=== PATIENT | male | born 1945 | race Caucasian/White ===

== ENCOUNTER → 2017-09-21 09:17 | Outpatient (CLI) | payer MEDICARE, OTHER, SELFPAY ==
[2017-09-21 10:04] LABS: Hematocrit 37.4 % (40-54); Hemoglobin 12.2 g/dl (13.0-16.5); Mean Corp Hgb Conc 32.6 g/gl (32-36); Mean Corpuscular Hgb 31.4 pg (27.0-32.0); Mean Corpuscular Volume 96.4 fL (80-94); Platelet Count 264 K/mm3 (150-450); RBC Distribution Width CV 14.1 % (11.6-14.6); RBC Distribution Width SD 47.5 fl (35.1-43.9); Red Blood Count 3.88 M/mm3 (4.6-6.2); White Blood Count 9.1 K/mm3 (4.4-11.0)
[2017-09-21 10:06] LABS: Scan Indicated on CBC? Y/N NO
[2017-09-21 10:40] LABS: Albumin, Serum 3.4 g/dL (3.2-5.0); BUN 34 mg/dL (7-18); Calcium,Total 8.6 mg/dL (8.5-10.1); Chloride 109 mmol/L (98-107); Creatinine, Serum 2.13 mg/dL (0.70-1.30); EST Glomerular Filtration Rate 33 mL/min (>60); Est Glom Filt Rate - Afr Amer 39 mL/min (>60); Glucose 144 mg/dL (70-110); Phosphorus 3.8 mg/dL (2.5-4.9); Potassium 4.6 mmol/L (3.5-5.1); Sodium Level 142 mmol/L (136-145)
== END ==
PROVIDERS: Family Provider Family Medicine Geriatric Medicine; PCP Family Medicine Geriatric Medicine; Visit Provider Internal Medicine Nephrology
DX: E11.22 Type 2 diabetes mellitus with diabetic chronic kidney disease (principal); N18.3 Chronic kidney disease, stage 3 (moderate); E55.9 Vitamin D deficiency, unspecified
CPT/HCPCS: 36415; 80069; 82306; 82570; 85027

== ENCOUNTER → 2017-10-22 09:43 | Outpatient (CLI) | payer MEDICARE, OTHER, SELFPAY ==
--- NOTE | 2017-10-22 09:51 | CDU_ITS ---
Reason For Study: CAROTID STENOSIS Rt. Velocities/BP Lt. Velocities/BP Prox CCA 104.0/17.6 cm/sec. Prox CCA 86.8/15.8 cm/sec. Mid CCA 87.9/14.7 cm/sec. Mid CCA 92.0/19.3 cm/sec. Dist CCA 62.1/12.3 cm/sec. Dist CCA 89.1/18.2 cm/sec. Prox ICA 74.5/16.4 cm/sec. Prox ICA 90.3/14.1 cm/sec. Mid ICA 93.2/23.5 cm/sec. Mid ICA 80.9/22.3 cm/sec. Dist ICA 97.3/22.3 cm/sec. Dist ICA 94.4/25.2 cm/sec. Rt. ICA/CCA = 97.3/87.9=1.1. Lt. ICA/CCA = 94.4/92.0=1.0. Prox ECA 106.0/2.93 cm/sec. Prox ECA 116.0/9.38 cm/sec. Rt. Vert. 62.9/13.0 cm/sec. Lt. Vert. 36.4/7.38 cm/sec. Right Extracranial There is intimal thickening but no significant atherosclerotic plaque noted in the right common carotid artery. There is homogeneous, smooth atherosclerotic plaque noted in the right internal carotid artery. The right internal carotid artery is not well visualized. There is no significant atherosclerotic plaque noted in the right external carotid artery. Antegrade flow is noted in the right vertebral artery. Left Extracranial There is intimal thickening but no significant atherosclerotic plaque noted in the left common carotid artery. There is heterogeneous, smooth atherosclerotic plaque noted in the left internal carotid artery. There is no significant atherosclerotic plaque noted in the left external carotid artery. Antegrade flow is noted in the left vertebral artery. There is homogeneous, irregular atherosclerotic plaque noted in the left bulb. Procedure Carotid Duplex 48312. The exam was diagnostic. Exam performed in department. Interpretation Summary Mild (<50%) stenosis right extracranial internal carotid. Mild (<50%) stenosis left extracranial internal carotid. Flow within the vertebral arteries is antegrade bilaterally. Ordering Physician: Jayden Cedillo Referring Physician: Jayden Cedillo Chi Performed By: Sultana Patel, CHENTE, RVT
== END ==
PROVIDERS: Family Provider Family Medicine Geriatric Medicine; PCP Family Medicine Geriatric Medicine; Visit Provider Family Medicine Geriatric Medicine
DX: I65.29 Occlusion and stenosis of unspecified carotid artery (principal); Z86.73 Personal history of transient ischemic attack (TIA), and cerebral infarction without residual deficits
CPT/HCPCS: 93880

== ENCOUNTER → 2017-11-23 12:06 | Outpatient (CLI) | payer MEDICARE, OTHER, SELFPAY | PROVIDERS: Family Provider Family Medicine Geriatric Medicine; PCP Family Medicine Geriatric Medicine; Visit Provider Family Medicine Geriatric Medicine | DX: J32.9 Chronic sinusitis, unspecified (principal) | CPT/HCPCS: 87633 ==

== ENCOUNTER 2017-12-18 20:19 | Observation (INO) | payer MEDICARE, OTHER, SELFPAY ==
[2017-12-18] VITALS (7 sets, daily range): BP systolic 130–159; BP diastolic 58–90; PULSE 66–86; RESP 14–19; TEMP 36.4–36.5; O2SAT 97–99; BMI 30.7; BMI 30.2; BMI 30.3
--- NOTE | 2017-12-18 20:22 | NURSING ---
RN CALLED FOR EKG, PULLED OLD EKG'S FOR
--- NOTE | 2017-12-18 20:37 | EKG12_ITS ---
Test Reason : CP Blood Pressure : / mmHG Vent. Rate : 073 BPM Atrial Rate : 073 BPM P-R Int : 186 ms QRS Dur : 098 ms QT Int : 386 ms P-R-T Axes : 081 076 063 degrees QTc Int : 425 ms Normal sinus rhythm with sinus arrhythmia Normal ECG Confirmed by MARY SINGLETARY, WARREN ([id number]), associate entertainment editor SRAVAN ANAYA ([id number]) on 12/21/2017 3:30:57 PM Referred By: VINCENT Confirmed By:WARREN HERNANDEZ MD
[2017-12-18] MEDS: Aspirin 81 MG TAB.CHEW 324 MG PO (20:40)
--- NOTE | 2017-12-18 20:40 | RAD_ITS ---
STUDY: X-RAY CHEST REASON FOR EXAM: Male, 72 years old. Chest pain TECHNIQUE: Frontal view of the chest COMPARISON: None. FINDINGS: The lungs are clear. There are no pleural effusions. There is no pneumothorax. The heart is normal in size. The visualized osseous structures are within normal limits. RAD/Chest 1 View (Portable) IMPRESSION: No acute thoracic pathology. Electronically Signed: Ralf Thompson, at 21:06 EDT Tel , Service support ,
[2017-12-18 20:47] LABS: Absolute Lymphocyte Count 0.82 X10^3/ul (0.83-4.51); Absolute Neutrophil Count 8.1 X10^3/uL (2.0-7.7); Basophil# 0.01 X10^3/uL; Basophil% 0.1 % (0-1); Hematocrit 37.8 % (40-54); Hemoglobin 12.3 g/dl (13.0-16.5); Lymphocyte # 0.82 X10^3/ul (4.0); Lymphocyte % 8.9 % (19-41); Mean Corp Hgb Conc 32.5 g/gl (32-36); Mean Corpuscular Hgb 30.8 pg (27.0-32.0); Mean Corpuscular Volume 94.5 fL (80-94); Mean Platelet Vol. 8.9 fl (6.2-12.0); Monocyte# 0.31 X10^3/uL; Monocyte% 3.4 % (0-10); Neutrophil # 8.06 X10^3/uL (2.7-7.7); Neutrophil % 87.1 % (47-70); POSITIVE COUNT NO; POSITIVE DIFFERENTIAL NO; POSITIVE MORPHOLOGY NO; Platelet Count 210 K/mm3 (150-450); RBC Distribution Width CV 14.3 % (11.6-14.6); RBC Distribution Width SD 49.2 fl (35.1-43.9); White Blood Count 9.3 K/mm3 (4.4-11.0)
--- NOTE | 2017-12-18 21:02 | ED.VISSUMM ---
- ER Visit Summary Date of Service: 12/18/17 Chief Complaint: Chest pain History of Present Illness: The patient is a 72 M presenting with chest pain. He states this started just prior to arrival. He was sitting in a chair and developed midsternal chest discomfort. He denies radiation. He had mild shortness of breath associated with this. Denies nausea or diaphoresis. He states the pain was consistent until he arrived at the hospital. He states that the pain has now resolved. He has a history of diabetes, hypertension, hypercholesterolemia. He is not a smoker. Physical Examination: Vitals are stable. Patient is afebrile. Alert no acute distress. HEENT exam is unremarkable. Neck is supple. Lungs are clear and equal bilaterally. Heart is regular rate and rhythm. Abdomen is soft nontender nondistended. Extremities are unremarkable. Skin is warm and dry. No focal neurologic deficit. Remainder of exam is unremarkable. Emergency Department Course and Treatment: Patient was given aspirin on arrival. EKG is sinus rate is [address] depression. Chest x-ray shows no acute process. CBC normal except for hemoglobin 12.3. Chemistry normal except for potassium 5.3, glucose 318, BUN 49, creatinine 2.44. Troponin is negative. Patient is chest pain-free on reevaluation. Will discuss with the hospitalist for observation. Disposition: Observation Impression: Chest pain This note was generated with [employer] dictation software. It may contain incorrect words, spelling, and punctuation that were not noted in review of the chart prior to signing ED Disposition - Plan for ED Patient: Chief Complaint: Chest Pain Referrals: Jayden Cedillo Chi, MD [Primary Care Provider] -
[2017-12-18 21:05] LABS: Anion Gap 9 (5-15); BUN 49 mg/dL (7-18); BUN/Creat Ratio 20.1 RATIO (10-20); Calcium,Total 8.7 mg/dL (8.5-10.1); Chloride 107 mmol/L (98-107); Creatinine, Serum 2.44 mg/dL (0.70-1.30); EST Glomerular Filtration Rate 28 mL/min (>60); Est Glom Filt Rate - Afr Amer 34 mL/min (>60); Estimated Creatinine Clearance 28.26 ml/min; Glucose 318 mg/dL (74-106); Potassium 5.3 mmol/L (3.5-5.1); Sodium Level 136 mmol/L (136-145)
--- NOTE | 2017-12-18 22:41 | ED.RN ---
reported to RN that pt passed out in [facility] on sunday. information relayed to . pt reports + LOC
--- NOTE | 2017-12-18 22:42 | ED.RN ---
pt has had CP on/off in ED. standing relieves pain.
--- NOTE | 2017-12-18 22:51 | PCM.HP.STD ---
Problem List (1) Carotid artery disease Status: Chronic (2) Stage III chronic kidney disease Status: Chronic (3) Hypothyroidism Status: Chronic (4) Hyperlipidemia Status: Chronic (5) HTN (hypertension) Status: Chronic (6) CKD (chronic kidney disease) Status: Chronic (7) DM2 (diabetes mellitus, type 2) Status: Chronic History of Present Illness Date of Admission: 12/18/17 Chief Complaint: Chest pain. The patient is a 72 year old M with past medical history as mentioned above presented to the emergency room because of chest pain. His symptoms started this evening when he was sitting in his chair and after he ate his dinner and ice cream, developed midsternal chest pain, described as chest tightness, 4-5 out of 10 in severity, not radiating, relieved by standing, no aggravating factors and denied any significant associated symptoms. He denied associated shortness of breath, dizziness, lightheadedness, nausea or vomiting.. Earlier today, his was mowing the lawn and he helped her to empty the grass bags. In the emergency department, his vital signs were stable. His routine blood work was remarkable for chronic anemia with hemoglobin of 12.3 g/dL, potassium of 5.3 and creatinine of 2.44. His troponin is negative. EKG revealed normal sinus rhythm without evidence of acute ischemic changes. Chest x-ray showed no acute findings. He is being admitted for chest pain for evaluation. Past Medical History Past Medical History (Chronic Problems): Chronic Problems Carotid artery disease (Chronic) Stage III chronic kidney disease (Chronic) Hypothyroidism (Chronic) Hyperlipidemia (Chronic) HTN (hypertension) (Chronic) CKD (chronic kidney disease) (Chronic) DM2 (diabetes mellitus, type 2) (Chronic) Allergies lisinopril Allergy (Verified 12/18/17 20:25) Other Home Medications: Ambulatory Orders Medication Instructions Recorded Amlodipine [Norvasc] 5 mg PO DAILY 04/06/14 Aspirin E.C. [Ecotrin] 81 mg PO BID 04/06/14 Atorvastatin Calcium [Lipitor] 40 mg PO QHS 04/06/14 Pioglitazone [Actos] 45 mg PO DAILY 04/06/14 Propranolol HCl [Inderal LA (Beta 80 mg PO BID 04/06/14 Kaykay)] Sitagliptin Phosphate [Januvia] 50 mg PO DAILY 04/06/14 Cefdinir 300 mg PO BID 12/18/17 Cholecalciferol (Vitamin D3) 2,000 unit PO DAILY 12/18/17 [Vitamin D3] Levothyroxine [Synthroid] 25 mcg PO DAILY 12/18/17 Prednisone 12/18/17 Valsartan 80 mg PO DAILY 12/18/17 Surgical History: - - Left carotid endarterectomy Psychiatric History: No pertinent psych hx Lives: Spouse/ Significant Other Smoking Status: Never smoker Alcohol: None Drugs: None - *Family History Maternal History Items: No pertinent history Paternal History Items: No pertinent history Review of Systems Constitutional: Denies: Anorexia, Chills, Fever, Weakness Eyes: Denies: Blurred vision, Double vision, Drainage, Redness HEENT: Denies: Difficulty Hearing, Ear Pain, Eye Pain, Nasal Congestion, Sore Throat Cardiovascular: Reports: Chest Pain, Chest Tightness. Denies: Edema, Heaviness, Light Headedness, Palpitations, Paroxysmal Noc. Dyspnea, Syncope Respiratory: Denies: Cough, Pleuritic Pain, Shortness of Breath, Sputum production, Wheezing Gastrointestinal: Denies: Abdominal Pain, Constipation, Diarrhea, Nausea, Vomiting Genitourinary: Denies: Dysuria, Frequency, Hematuria Musculoskeletal: Reports: Back Pain. Denies: Arm Pain, Foot Pain Skin: Denies: Dryness, Rash Neurological: Denies: Balance problems, Double vision, Slurred speech, Confusion, Focal weakness, Headaches, Incoordination Psychiatric: Denies: Anxiety, Depression Endocrine: Denies: Change in Body Habitus, Polydipsia VTE Information - Inpt Only VTE Present on Admission: No VTE Mechan Device Prophylaxis: None VTE Pharm Prophylaxis ordered?: Yes - Physical Exam General: Alert, Oriented x3, Cooperative, No apparent distress HEENT: Atraumatic, PERRLA, EOMI Oral: Moist Mucosa, No Gingival or Mucosal Lesions/ Ulcerations Neck: Supple, No JVD, Negative Carotid Bruits, Trachea Midline, Thyroid Normal Size and Texture Lungs: Clear to auscultation, No rhonchi, No wheeze, No rales, Diminished Cardiovascular: Regular rate, Regular Rhythm, Normal S1, Normal S2, PMI Normal Abdomen: Bowel Sounds Present, Soft, Non Tender, Non-Distended, No Hepato-splenomegaly Extremities: No clubbing, No cyanosis, No edema Skin: No rashes, No breakdown Lymphatic: No Cervical, Supraclavicular, or Inguinal Adenopathy Neurological: Cranial nerves II-XII grossly intact, Motor Exam 5/5 strength throughout Psych/Mental Status: Normal Affect, Appropriate, Alert and oriented to time, place, person, mood and affect Vital Signs Temp Pulse Resp BP Pulse Ox 97.7 F L 73 18 130/70 H 99 12/18/17 20:20 12/18/17 21:26 12/18/17 21:26 12/18/17 21:26 12/18/17 21:26 Laboratory Tests 12/18/17 12/18/17 Range/Units 20:29 20:29 WBC 9.3 (4.4-11.0) K/mm3 RBC 4.00 L (4.6-6.2) M/mm3 Hgb 12.3 L (13.0-16.5) g/dl Hct 37.8 L (40-54) % MCV 94.5 H (80-94) fL MCH 30.8 (27.0-32.0) pg MCHC 32.5 (32-36) g/gl RDW 14.3 (11.6-14.6) % RDW Differential 49.2 H (35.1-43.9) fl Plt Count 210 (150-450) K/mm3 MPV 8.9 (6.2-12.0) fl Immature Gran % (Auto) 0.500 (0.0-0.9) % Neut % (Auto) 87.1 H (47-70) % Lymph % (Auto) 8.9 L (19-41) % [place] % (Auto) 3.4 (0-10) % Eos % (Auto) 0.0 (0-5) % Baso % (Auto) 0.1 (0-1) % Absolute Neuts (auto) 8.1 H (2.0-7.7) X10^3/uL Absolute Lymphs (auto) 0.82 L (0.83-4.51) X10^3/ul Total Counted Not Reportable Sodium 136 (136-145) mmol/L Potassium 5.3 H (3.5-5.1) mmol/L Chloride 107 (98-107) mmol/L Carbon Dioxide 20.0 L (21.0-32.0) mmol/L Anion Gap 9 (5-15) BUN 49 H (7-18) mg/dL Creatinine 2.44 H (0.70-1.30) mg/dL Estim Creat Clear Calc 28.26 ml/min Est GFR (MDRD) Af Amer 34 L (>60) mL/min Est GFR (MDRD) Non-Af 28 L (>60) mL/min BUN/Creatinine Ratio 20.1 H (10-20) RATIO Glucose 318 H (74-106) mg/dL Calcium 8.7 (8.5-10.1) mg/dL Troponin I < 0.02 (<0.06) ng/mL Clinical Impression(s) from Imaging Studies Chest X-Ray 12/18/17 20:40 IMPRESSION: No acute thoracic pathology. Electronically Signed: Ralf Thompson, at 21:06 EDT Tel , Service support , Assessment/Plan This is a 72 years old male patient presented to the medicine because of chest pain and he is being admitted for evaluation. #1 chest pain: Risk factors are age, hypertension, lipidemia, type 2 diabetes and history of carotid stenosis status post left carotid endarterectomy. Initial EKG without acute ischemic changes. Troponin is negative. Chest x-ray showed no acute findings. Plan: Admit to PCU for observation, cardiac monitoring, serial cardiac enzymes, repeat EKG tomorrow morning, nuclear stress test tomorrow morning if cardiac enzymes are negative. #2 mild hyperkalemia: Potassium is 5.3, no EKG changes. Plan for IV fluids, repeat BMP tomorrow morning. #3 hypertension: Blood pressure stable, continue Norvasc, hold propranolol for stress test. #4 hyperlipidemia: Continue statins. #5 type 2 diabetes mellitus: ADA diet, Accu-Cheks, insulin sliding scale, continue Actos and Januvia. #6 stage III chronic kidney disease: Baseline creatinine has been around 2.1-2.3 mg/dL. Admission creatinine is 2.44, needs to baseline, plan for gentle IV fluids for hydration, repeat BMP tomorrow morning. #7 hypothyroidism: Continue levothyroxine. #8 DVT prophylaxis: Subcu heparin. This note was generated with [employer] software. It may contain incorrect words, spelling, and punctuation that were not noted in checking the note before signing. Code Visit OBSV E&M: 90801 Initial observation care L2
--- NOTE | 2017-12-18 22:54 | HP.PCM_ITS ---
Problem List (1) Carotid artery disease Status: Chronic (2) Stage III chronic kidney disease Status: Chronic (3) Hypothyroidism Status: Chronic (4) Hyperlipidemia Status: Chronic (5) HTN (hypertension) Status: Chronic (6) CKD (chronic kidney disease) Status: Chronic (7) DM2 (diabetes mellitus, type 2) Status: Chronic History of Present Illness Date of Admission: 12/18/17 Chief Complaint: Chest pain. The patient is a 72 year old M with past medical history as mentioned above presented to the emergency room because of chest pain. His symptoms started this evening when he was sitting in his chair and after he ate his dinner and ice cream, developed midsternal chest pain, described as chest tightness, 4-5 out of 10 in severity, not radiating, relieved by standing, no aggravating factors and denied any significant associated symptoms. He denied associated shortness of breath, dizziness, lightheadedness, nausea or vomiting.. Earlier today, his was mowing the lawn and he helped her to empty the grass bags. In the emergency department, his vital signs were stable. His routine blood work was remarkable for chronic anemia with hemoglobin of 12.3 g/dL, potassium of 5.3 and creatinine of 2.44. His troponin is negative. EKG revealed normal sinus rhythm without evidence of acute ischemic changes. Chest x-ray showed no acute findings. He is being admitted for chest pain for evaluation. Past Medical History Past Medical History (Chronic Problems): Chronic Problems Carotid artery disease (Chronic) Stage III chronic kidney disease (Chronic) Hypothyroidism (Chronic) Hyperlipidemia (Chronic) HTN (hypertension) (Chronic) CKD (chronic kidney disease) (Chronic) DM2 (diabetes mellitus, type 2) (Chronic) Allergies lisinopril Allergy (Verified 12/18/17 20:25) Other Home Medications: Ambulatory Orders Medication Instructions Recorded Amlodipine [Norvasc] 5 mg PO DAILY 04/06/14 Aspirin E.C. [Ecotrin] 81 mg PO BID 04/06/14 Atorvastatin Calcium [Lipitor] 40 mg PO QHS 04/06/14 Pioglitazone [Actos] 45 mg PO DAILY 04/06/14 Propranolol HCl [Inderal LA (Beta 80 mg PO BID 04/06/14 Kaykay)] Sitagliptin Phosphate [Januvia] 50 mg PO DAILY 04/06/14 Cefdinir 300 mg PO BID 12/18/17 Cholecalciferol (Vitamin D3) 2,000 unit PO DAILY 12/18/17 [Vitamin D3] Levothyroxine [Synthroid] 25 mcg PO DAILY 12/18/17 Prednisone 12/18/17 Valsartan 80 mg PO DAILY 12/18/17 Surgical History: - - Left carotid endarterectomy Psychiatric History: No pertinent psych hx Lives: Spouse/ Significant Other Smoking Status: Never smoker Alcohol: None Drugs: None - *Family History Maternal History Items: No pertinent history Paternal History Items: No pertinent history Review of Systems Constitutional: Denies: Anorexia, Chills, Fever, Weakness Eyes: Denies: Blurred vision, Double vision, Drainage, Redness HEENT: Denies: Difficulty Hearing, Ear Pain, Eye Pain, Nasal Congestion, Sore Throat Cardiovascular: Reports: Chest Pain, Chest Tightness. Denies: Edema, Heaviness , Light Headedness, Palpitations, Paroxysmal Noc. Dyspnea, Syncope Respiratory: Denies: Cough, Pleuritic Pain, Shortness of Breath, Sputum production, Wheezing Gastrointestinal: Denies: Abdominal Pain, Constipation, Diarrhea, Nausea, Vomiting Genitourinary: Denies: Dysuria, Frequency, Hematuria Musculoskeletal: Reports: Back Pain. Denies: Arm Pain, Foot Pain Skin: Denies: Dryness, Rash Neurological: Denies: Balance problems, Double vision, Slurred speech, Confusion , Focal weakness, Headaches, Incoordination Psychiatric: Denies: Anxiety, Depression Endocrine: Denies: Change in Body Habitus, Polydipsia VTE Information - Inpt Only VTE Present on Admission: No VTE Mechan Device Prophylaxis: None VTE Pharm Prophylaxis ordered?: Yes - Physical Exam General: Alert, Oriented x3, Cooperative, No apparent distress HEENT: Atraumatic, PERRLA, EOMI Oral: Moist Mucosa, No Gingival or Mucosal Lesions/ Ulcerations Neck: Supple, No JVD, Negative Carotid Bruits, Trachea Midline, Thyroid Normal Size and Texture Lungs: Clear to auscultation, No rhonchi, No wheeze, No rales, Diminished Cardiovascular: Regular rate, Regular Rhythm, Normal S1, Normal S2, PMI Normal Abdomen: Bowel Sounds Present, Soft, Non Tender, Non-Distended, No Hepato- splenomegaly Extremities: No clubbing, No cyanosis, No edema Skin: No rashes, No breakdown Lymphatic: No Cervical, Supraclavicular, or Inguinal Adenopathy Neurological: Cranial nerves II-XII grossly intact, Motor Exam 5/5 strength throughout Psych/Mental Status: Normal Affect, Appropriate, Alert and oriented to time, place, person, mood and affect Vital Signs Temp Pulse Resp BP Pulse Ox 97.7 F L 73 18 130/70 H 99 12/18/17 20:20 12/18/17 21:26 12/18/17 21:26 12/18/17 21:26 12/18/17 21:26 Laboratory Tests 3 12/18/17 12/18/17 Range/Units 20:29 20:29 WBC 9.3 (4.4-11.0) K/mm3 RBC 4.00 L (4.6-6.2) M/mm3 Hgb 12.3 L (13.0-16.5) g/dl Hct 37.8 L (40-54) % MCV 94.5 H (80-94) fL MCH 30.8 (27.0-32.0) pg MCHC 32.5 (32-36) g/gl RDW 14.3 (11.6-14.6) % RDW Differential 49.2 H (35.1-43.9) fl Plt Count 210 (150-450) K/mm3 MPV 8.9 (6.2-12.0) fl Immature Gran % (Auto) 0.500 (0.0-0.9) % Neut % (Auto) 87.1 H (47-70) % Lymph % (Auto) 8.9 L (19-41) % Jay % (Auto) 3.4 (0-10) % Eos % (Auto) 0.0 (0-5) % Baso % (Auto) 0.1 (0-1) % Absolute Neuts (auto) 8.1 H (2.0-7.7) X10^3/uL Absolute Lymphs (auto) 0.82 L (0.83-4.51) X10^3/ul Total Counted Not Reportable Sodium 136 (136-145) mmol/L Potassium 5.3 H (3.5-5.1) mmol/L Chloride 107 (98-107) mmol/L Carbon Dioxide 20.0 L (21.0-32.0) mmol/L Anion Gap 9 (5-15) BUN 49 H (7-18) mg/dL Creatinine 2.44 H (0.70-1.30) mg/dL Estim Creat Clear Calc 28.26 ml/min Est GFR (MDRD) Af Amer 34 L (>60) mL/min Est GFR (MDRD) Non-Af 28 L (>60) mL/min BUN/Creatinine Ratio 20.1 H (10-20) RATIO Glucose 318 H (74-106) mg/dL Calcium 8.7 (8.5-10.1) mg/dL Troponin I < 0.02 (<0.06) ng/mL Clinical Impression(s) from Imaging Studies Chest X-Ray 12/18/17 20:40 IMPRESSION: No acute thoracic pathology. Electronically Signed: Ralf Thompson, at 21:06 EDT Tel , Service support , Assessment/Plan This is a 72 years old male patient presented to the medicine because of chest pain and he is being admitted for evaluation. #1 chest pain: Risk factors are age, hypertension, lipidemia, type 2 diabetes and history of carotid stenosis status post left carotid endarterectomy. Initial EKG without acute ischemic changes. Troponin is negative. Chest x-ray showed no acute findings. Plan: Admit to PCU for observation, cardiac monitoring, serial cardiac enzymes, repeat EKG tomorrow morning, nuclear stress test tomorrow morning if cardiac enzymes are negative. #2 mild hyperkalemia: Potassium is 5.3, no EKG changes. Plan for IV fluids, repeat BMP tomorrow morning. #3 hypertension: Blood pressure stable, continue Norvasc, hold propranolol for stress test. #4 hyperlipidemia: Continue statins. #5 type 2 diabetes mellitus: ADA diet, Accu-Cheks, insulin sliding scale, continue Actos and Januvia. #6 stage III chronic kidney disease: Baseline creatinine has been around 2.1- 2.3 mg/dL. Admission creatinine is 2.44, needs to baseline, plan for gentle IV fluids for hydration, repeat BMP tomorrow morning. #7 hypothyroidism: Continue levothyroxine. #8 DVT prophylaxis: Subcu heparin. This note was generated with [employer] software. It may contain incorrect words, spelling, and punctuation that were not noted in checking the note before signing. Code Visit OBSV E&M: 61686 Initial observation care L2
--- NOTE | 2017-12-18 22:58 | EKG12_ITS ---
Test Reason : CP Blood Pressure : / mmHG Vent. Rate : 077 BPM Atrial Rate : 077 BPM P-R Int : 186 ms QRS Dur : 096 ms QT Int : 384 ms P-R-T Axes : 092 074 059 degrees QTc Int : 434 ms Normal sinus rhythm ST & T wave abnormality, consider lateral ischemia Abnormal ECG Confirmed by WARREN HERNANDEZ MD ([id number]), multimedia editor SRAVAN ANAYA ([id number]) on 12/21/2017 3:31:17 PM Referred By: ISIS
[2017-12-19] VITALS (8 sets, daily range): BP systolic 126–150; BP diastolic 60–68; PULSE 63–70; RESP 14–18; TEMP 36.7–36.9; O2SAT 93–98
[2017-12-19] MEDS: 0.9% Normal Saline 1,000 ML 75 ML IV (00:22)
[2017-12-19 04:20] LABS: Hematocrit 33.7 % (40-54); Hemoglobin 11.1 g/dl (13.0-16.5); Mean Corp Hgb Conc 32.9 g/gl (32-36); Mean Corpuscular Volume 94.1 fL (80-94); Mean Platelet Vol. 8.7 fl (6.2-12.0); Platelet Count 194 K/mm3 (150-450); Red Blood Count 3.58 M/mm3 (4.6-6.2); White Blood Count 10.8 K/mm3 (4.4-11.0)
[2017-12-19 04:41] LABS: Prothrombin Time (Protime)PT. 13.6 SECONDS (11.7-14.9)
[2017-12-19 04:42] LABS: Partial Thromboplast Time 25.5 Seconds (24.1-36.2); Scan Indicated on CBC? Y/N NO
[2017-12-19 04:45] LABS: Anion Gap 9 (5-15); BUN 49 mg/dL (7-18); BUN/Creat Ratio 21.9 RATIO (10-20); Calcium,Total 8.4 mg/dL (8.5-10.1); Chloride 112 mmol/L (98-107); Creatinine, Serum 2.24 mg/dL (0.70-1.30); EST Glomerular Filtration Rate 31 mL/min (>60); Est Glom Filt Rate - Afr Amer 37 mL/min (>60); Estimated Creatinine Clearance 30.78 ml/min; Glucose 213 mg/dL (74-106); Potassium 4.8 mmol/L (3.5-5.1); Sodium Level 141 mmol/L (136-145)
[2017-12-19] MEDS: Levothyroxine 25 MCG TABLET PO (05:09)
[2017-12-19] MEDS: Aspirin E.C. 81 MG Tablet PO (05:09)
--- NOTE | 2017-12-19 05:55 | EKG12_ITS ---
Test Reason : AM EKG Blood Pressure : / mmHG Vent. Rate : 066 BPM Atrial Rate : 066 BPM P-R Int : 178 ms QRS Dur : 094 ms QT Int : 408 ms P-R-T Axes : 081 067 058 degrees QTc Int : 427 ms Normal sinus rhythm Normal ECG When compared with ECG of 18-DEC-2017 22:18, MANUAL COMPARISON REQUIRED, DATA IS UNCONFIRMED Confirmed by MARY SINGLETARY, WARREN ([id number]), assignment editor SRAVAN ANAYA ([id number]) on 12/21/2017 3:58:44 PM Referred By: GARY Confirmed By:WARREN HERNANDEZ MD
--- NOTE | 2017-12-19 06:36 | NURSING ---
Spoke with , Kristie, over the phone. She is to bring in home medications or home medication list later this am.
[2017-12-19 07:36] LABS: Bedside Glucose 174 mg/dL (70-110)
--- NOTE | 2017-12-19 08:16 | ECHOD_ITS ---
Reason For Study: CHEST PAIN Procedure This was a 2D Doppler, Color Flow transthoracic echocardiogram. Exam performed portable in patient room. Left Ventricle Normal size and thickness. The estimated ejection fraction is 65 %. Stage 2 diastolic dysfunction. No regional wall motion abnormalities noted. Right Ventricle Normal size and thickness. Normal systolic function. Atria The left atrium is moderately enlarged. The right atrium is mildly enlarged. Normal atrial septum. Mitral Valve The mitral valve is structurally normal. No prolapse or stenosis seen. Mild (1+) mitral valve insufficiency. Tricuspid Valve Normal tricuspid valve. Trivial tricuspid valve insufficiency. Right ventricular systolic pressure estimated to be 35 mmHg. Aortic Valve Normal aortic valve. Trisinus/trileaflet aortic valve. Pulmonic Valve Normal pulmonic valve. Trivial pulmonic valve insufficiency. Great Vessels Normal aortic root. Normal arch. Normal inferior vena cava. Inferior vena cava collapse with sniff. Pericardium/Pleural No pericardial effusion. MMode/2D Measurements & Calculations LVIDd: 4.8 cm IVSd: 1.1 cm Ao root diam: 3.4 cm LVIDs: 3.2 cm LVPWd: 1.0 cm LA dimension: 3.9 cm RVDd: 3.6 cm FS: 33.8 % LAV(MOD-bp): 94.3 ml LA A4 area: 26.5 cm2 RA A4 area: 20.4 cm2 LAV(MOD-bp) Indexed: 44.2 ml/m2 LAV(MOD-sp2): 82.8 ml LAV(MOD-sp4): 90.1 ml Doppler Measurements & Calculations MV E max delvin: 115.5 cm/sec Lat Peak E' Delvin: 13.0 cm/sec Med Peak E' Delvin: 8.8 cm/sec MV A max delvin: 70.0 cm/sec E/E' lat: 8.9 E/E' med: 13.1 MV E/A: 1.6 Ao V2 max: 140.0 cm/sec LV V1 max: 94.5 cm/sec PA V2 max: 107.7 cm/sec Ao max P.8 mmHg LV V1 max P.6 mmHg PI end-d delvin: 106.6 cm/sec TR max delvin: 269.6 cm/sec PI dec slope: 280.2 cm/sec2 TR max P.6 mmHg Interpretation Summary The estimated ejection fraction is 65 %. Stage 2 diastolic dysfunction. The left atrium is moderately enlarged. Mild (1+) mitral valve insufficiency. Trivial tricuspid valve insufficiency. Right ventricular systolic pressure estimated to be 35 mmHg. Compared to echo report dated 04/07/2014, no appreciable changes noted. Ordering Physician: Macario Singh MD Referring Physician: Jayden Cedillo Chi Performed By: Sultana Patel RDCS, RVT
--- NOTE | 2017-12-19 09:00 | STRESSREP ---
Stress Test Report Resting pharmacologic myocardial perfusion stress test. 72-year-old male with a history of chest pain. Stress protocol. The patient was brought down for a stress test was noted to have active chest pain as well as abnormal troponins 14.1 mCi of technetium 99m sestamibi was injected at rest and resting images were obtained. Review of the images demonstrated normal uptake of tracer in all areas of the myocardium during the resting images. The test was terminated due to his active chest pain. Conclusion: Incomplete stress test with no evidence of resting perfusion defect noted.
[2017-12-19] MEDS: TICAGRELOR 90 MG TABLET 180 MG PO (10:42)
[2017-12-19 12:15] LABS: Bedside Glucose 148 mg/dL (70-110)
[2017-12-19] MEDS: DiphenhydrAMINE 25 MG Capsule 50 MG PO (12:42)
--- NOTE | 2017-12-19 12:47 | NURSING ---
report called to animal laboratory helper for heart cath.
--- NOTE | 2017-12-19 13:49 | NURSING ---
report called to [facility] on ICU for transfer.
--- NOTE | 2017-12-19 14:05 | CL.D_ITS ---
Patient Name: DARCIE PEARL Study Date: 12/19/2017 Performing: Macario Singh MD Ht: 70.07 inches 178 cm : 1945 Wt: 211.64 lbs 96 kg Age: 72 Gender: male BSA: 2.14 PROCEDURE(S) PERFORMED [id number] INSERTION CLINICAL PROFILE AND INDICATIONS Indications: ACS <= 24 hrs, New Onset Angina <= 2 months, Worsening Angina, Suspected CAD Heart Failure: None Stress/Imaging Stress/Image Study Performed: No Angina Classification Anginal Classification w/in 2 Weeks: CCS IV CAD Presentations: Non-STEMI. Symptom onset Date/Time: 11/18/2017 Time Not Available Comorbidities/Risk Factors: Hypertension Dyslipidemia Diabetes Mellitus: Diabetes Therapy: Oral CONCLUSIONS Triple vessel CAD of the LM, LAD, LCX and RCA Global LV systolic dysfunction- Mild RECOMMENDATIONS Risk factor modification ASA Indefinitely Surgery consult for coronary revascularization Emergent IABP placed after cath for severe multi-vessel and LM disease as well as dynamic diffuse ST depression. Tx to [facility] for CABG. IV heparin gtt IV NTG gtt Pt became chest pain free and ECG changes resolved after NTG gtt and IABP. DESCRIPTION OF PROCEDURE CORONARY ANGIOGRAPHY DOMINANCE: Co- Dominant LEFT HEART ASSESSMENT Left Ventricular Ejection Fraction: by LV Gram 55 % Global Hypokinesis - Mild Normal Left Ventricular systolic function LVEDP: 31 mmHg Elevated Left Ventricular End Diastolic Pressure LEFT MAIN: Mild calcification, 75 % Stenosis LEFT ANTERIOR DECENDING ARTERY: Moderate calcification OSTIAL LAD: 70 % Stenosis PROX LAD: 70 % Stenosis CIRCUMFLEX ARTERY: Moderate calcification OSTIAL CIRC: 85 % Stenosis OM 1: Proximal - 70 % Stenosis RIGHT CORONARY ARTERY: is occluded COLLATERAL FLOW: Collateral flow from Left to Right COMPLICATIONS No Complications PROCEDURE MEDICATIONS Fentanyl 25 mcg IV Oxygen: 2 L/min via nasal cannula Heparin 25,000u / 250ml D5W @ 800 u/hr IV started 12/19/2017 13:39:00 Nitro Tab 0.4 mg PO 12/19/2017 13:26:50 Nitro glycerin 25mg / 250ml D5W @ 5 mcg/min IV started 12/19/2017 13:42:21 SUMMARY OF HEMODYNAMIC DATA Time AIR REST ECG 13:02:09 AO 161/56 (91) SA 13:21:21 LV 194/-8, 18 13:28:11 LV 184/4, 31 13:28:19 LV 191/12, 37 13:28:37 AO 184/80 (124) 13:28:43 Signed By Macario Singh MD On 12/19/2017 14:04:36 Macario Singh MD
--- NOTE | 2017-12-19 14:13 | PCM.CONS.C ---
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 The patient was helping with loading grass into bags yesterday, and while he was at dinner developed substernal chest pain which was quite severe having him get up to walk away from the table. When he returned at the urging of his he went to [facility] ER where an EKG was performed which showed normal sinus rhythm, no acute changes. His initial troponins were negative ?2 however his third 1 was 0.37 increasing to 1.01. His chest pain did not return. Patient was loaded with baby aspirin and Brilinta, and referred for urgent catheterization. This demonstrated moderate calcification of his LAD and left circumflex, left main disease of about 70%, ostial LAD and proximal LAD stenosis of 70%, ostial left circumflex stenosis of 85%, occluded right coronary artery with codominant system and left right collaterals. Relook at the left main coronary artery showed patency of the left main, LAD and left circumflex without evidence of dissection. It appears his chest pain was due to displacement of oxygen-carrying blood during injection of contrast dye as well as increased wall stress due to hypertension. His EF was approximately 55% with mild global LV hypokinesis. During the procedure the patient got severe substernal chest pressure with dynamic ST segment depression requiring sublingual nitroglycerin, nitroglycerin drip, and urgent intrinsic balloon pump placement. The patient then became chest pain-free with medical management. His blood pressure initially spiked into the 180s during his chest pain but then came back down. He is currently heme and apically stable. Arrangements have been made for the patient to be transferred by helicopter to [facility] for evaluation of multivessel bypass surgery. The patient did receive a loading dose of Brilinta 180 mg earlier this morning. He is currently heme and apically stable, in no acute distress. Intrinsic balloon pump placed at 1-1. Patient is residing in the [facility] until the transport arrives. EKG changes have resolved. [] Past Medical History Allergies/Adverse Reactions: Allergies lisinopril Allergy (Verified 12/18/17 20:25) Other metformin Allergy (Verified 12/19/17 09:05) Other Home Medications: Ambulatory Orders Medication Instructions Recorded Amlodipine [Norvasc] 5 mg PO DAILY 04/06/14 Aspirin E.C. [Ecotrin] 81 mg PO BID 04/06/14 Atorvastatin Calcium [Lipitor] 40 mg PO QHS 04/06/14 Pioglitazone [Actos] 45 mg PO DAILY 04/06/14 Propranolol HCl [Inderal LA (Beta 80 mg PO BID 04/06/14 Kaykay)] Sitagliptin Phosphate [Januvia] 50 mg PO DAILY 04/06/14 Cefdinir 300 mg PO BID 12/18/17 Cholecalciferol (Vitamin D3) 2,000 unit PO DAILY 12/18/17 [Vitamin D3] Levothyroxine [Synthroid] 25 mcg PO DAILY 12/18/17 Valsartan 80 mg PO DAILY 12/18/17 Prednisone 10 mg PO DAILY 12/19/17 Past Medical History (Chronic Problems): Chronic Problems Carotid artery disease (Chronic) Stage III chronic kidney disease (Chronic) Hypothyroidism (Chronic) Hyperlipidemia (Chronic) HTN (hypertension) (Chronic) CKD (chronic kidney disease) (Chronic) DM2 (diabetes mellitus, type 2) (Chronic) Surgical History: - - Left carotid endarterectomy Psychiatric History: No pertinent psych hx - *Family History Paternal History Items: No pertinent history Maternal History Items: No pertinent history Lives: Spouse/ Significant Other Smoking Status: Never smoker Alcohol: None Drugs: None Review of Systems - Review of Systems General: Denies: Fever, Night Sweats, Fatigue Cardiovascular: Reports: Chest Discomfort, Chest Discomfort at Rest. Denies: Shortness of Breath, Orthopnea, PND, Peripheral Edema, Palpitations, Lightheadedness, Dizziness, Near Syncope, Syncope Respiratory: Denies: Cough, Sputum Production, Hemoptysis Gastrointestinal: Denies: Hematemesis, Hematochezia, Melena Genitourinary: Denies: Dysuria, Hematuria Skin: Denies: Rash Subjectve: Patient resting comfortably, intruding balloon pump at 1-1 ratio, no chest pain. Heme and apically stable. Objective: Vital Signs Temp Pulse Resp BP Pulse Ox 98.3 F 70 18 150/68 H 94 12/19/17 12:40 12/19/17 12:40 12/19/17 12:40 12/19/17 12:40 12/19/17 12:40 Oxygen Delivery Method Room Air Weight: 210 lb 15.718 oz Body Mass Index (BMI) 30.2 Intake and Output for Last 24 Hours 12/17/17 12/18/17 12/19/17 23:59 23:59 23:59 Intake Total 1020 / 1020 Output Total 400 / 400 Balance 620 / 620 General: Awake, Alert, Oriented x 3 HEENT: PERRL, EOMI, Sclera Non Icteric Neck: Supple, Good ROM, No Lymph Node Enlargement Lungs: Clear to auscultation Cardiovascular: Regular Rhythm, Normal S1, Normal S2, No Murmurs, No Rubs, No Gallops Vascular: No Carotid Bruits, Normal Femoral Pulses, Normal Radial Pulses, Normal Dorsalis Pedal Pulse, Normal Posterior Tibial Pulses Abdomen: Bowel Sounds Present, Soft, Non Tender, No HSM, No Organomegaly Extremities: No Cyanosis, No Clubbing, No edema Neurological: No Focal Motor or Sensory Deficit 12/19/17 00:15: Troponin I 0.03 12/19/17 04:10: WBC 10.8, RBC 3.58 L, Hgb 11.1 L, Hct 33.7 L, MCV 94.1 H, MCH 31.0, MCHC 32.9, RDW 14.0, RDW Differential 46.0 H, Plt Count 194, MPV 8.7 12/19/17 04:10: Sodium 141, Potassium 4.8, Chloride 112 H, Carbon Dioxide 20.0 L, Anion Gap 9, BUN 49 H, Creatinine 2.24 H, Est GFR (MDRD) Af Amer 37 L, Est GFR (MDRD) Non-Af 31 L, BUN/Creatinine Ratio 21.9 H, Glucose 213 H, Calcium 8.4 L 12/19/17 04:10: Troponin I 0.37 H 12/19/17 04:10: PT 13.6, INR 1.0, APTT 25.5 12/19/17 10:00: Troponin I 1.05 H* Rhythm: EKG: As above ECHO: Pending Stress Test: Cardiac Cath: As above PCI: CT Surgery: Holter monitor: EPS: PPM: CXR: Chest CT Scan: Assessment/Plan 1. Coronary artery disease: Patient presents with unstable angina of new onset, abnormal troponin, normal EKG, and significant multivessel coronary artery disease and left main disease in the face of relatively intact LV function. The patient developed severe substernal chest pain during cardiac catheterization coronary injection, with concomitant hypertension. Patient was treated medically with sublingual nitroglycerin, IV fentanyl, nitroglycerin drip and urgent intruding balloon pump. This completely resolved his chest pain symptoms. His EKG changes have resolved as well. At this point I would recommend urgent transport by helicopter to [facility], the patient's preference for multivessel bypass surgery. Unless the patient's symptoms return despite maximal medical therapy and intrinsic balloon pump, do not believe he requires emergent transfer for emergency bypass surgery at this time. I have explained the patient's results to his , the hospitalist, as well as the patient, and we are awaiting helicopter transport to arrive. At this point we will continue baby aspirin, beta-kaykay, SILVERIO inhibitor if tolerable or equivalent, and urgent transferred to [facility] for eventual multivessel bypass surgery. 2. Hyperlipidemia: Recommend obtaining a fasting lipid profile. Given his diabetes and coronary and cerebrovascular disease he requires aggressive LDL reduction. Continue Lipitor. 3. Thank you very much for the opportunity to participate in the cardiac care of your patient. Consultation time took place between 8 AM and 8:30 AM. Code Visit Inpatient E&M: 36170 Init Hosp L2
--- NOTE | 2017-12-21 16:20 | PCM.DC.SUM ---
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 The patient was helping with loading grass and while he was at dinner developed substernal chest pain which was quite severe having him get up to walk away from the table. He was taken to the [facility] emergency room initial troponin was normal but increased to 0.37 and then 1.01 consistent with acute NSTEMI. Cardiology was consulted and he performed left heart catheterization it demonstrated moderate calcification of his LAD and left circumflex, left main disease of about 70%, ostial LAD and proximal LAD stenosis of 70%, ostial left circumflex stenosis of 85%, occluded right coronary artery with codominant system and left right collaterals. CABG was recommended and he was successfully transferred to [facility] via a helicopter. Discharge Diet: No Restrictions Home Medications: Medications to take at Discharge Amlodipine [Norvasc] 5 mg PO DAILY 04/06/14 Aspirin E.C. [Ecotrin] 81 mg PO BID 04/06/14 Atorvastatin Calcium [Lipitor] 40 mg PO QHS 04/06/14 Pioglitazone [Actos] 45 mg PO DAILY 04/06/14 Propranolol HCl [Inderal LA (Beta Kaykay)] 80 mg PO BID 04/06/14 Sitagliptin Phosphate [Januvia] 50 mg PO DAILY 04/06/14 Cefdinir 300 mg PO BID 12/18/17 Cholecalciferol (Vitamin D3) [Vitamin D3] 2,000 unit PO DAILY 12/18/17 Levothyroxine [Synthroid] 25 mcg PO DAILY 12/18/17 Valsartan 80 mg PO DAILY 12/18/17 Prednisone 10 mg PO DAILY 12/19/17 Primary Care Physician: Jayden Cedillo Chi, MD [Primary Care Provider] - Medical Necessity - Tobacco Use Smoking Status: Never smoker Meaningful Use Info Meaningful Use Diagnoses (Choose all that apply): None applicable Code Visit OBSV E&M: 25214 Observation care discharge
== END 2017-12-19 14:58 | disposition short-term general hospital (02) ==
LOC: ED 21:33 → PCU 22:44 → ICU 12-19 14:03
PROVIDERS: Admitting Provider Hospitalist; Emergency Provider Emergency Medicine; Family Provider Family Medicine Geriatric Medicine; PCP Family Medicine Geriatric Medicine; Visit Provider Internal Medicine
DX: I21.4 Non-ST elevation (NSTEMI) myocardial infarction (principal); E11.22 Type 2 diabetes mellitus with diabetic chronic kidney disease; I12.9 Hypertensive chronic kidney disease with stage 1 through stage 4 chronic kidney disease, or unspecified chronic kidney disease; N18.3 Chronic kidney disease, stage 3 (moderate); E03.9 Hypothyroidism, unspecified; E78.5 Hyperlipidemia, unspecified; D64.9 Anemia, unspecified; E87.5 Hyperkalemia; Z79.899 Other long term (current) drug therapy; Z79.52 Long term (current) use of systemic steroids; Z79.82 Long term (current) use of aspirin; Z86.73 Personal history of transient ischemic attack (TIA), and cerebral infarction without residual deficits; I25.10 Atherosclerotic heart disease of native coronary artery without angina pectoris
CPT/HCPCS: 33967; 36415; 71045; 78452; 80048; 82962; 84484; 85025; 85027; 85610; 85730; 93005; 93017; 93306; 93458; 97802; 99152; 99218; 99285; A9500; J7030; Q9967; A4216; C1769; C1894; G0378